=== PATIENT | female | born 1985 | race American Indian/Alaskan Native ===

== ENCOUNTER 2017-04-14 09:24 | Day surgery (SDC) | payer MEDICAID ==
[2017-04-07 14:25] VITALS: BMI 25.0
[2017-04-14] MEDS ORDERED: Lactated Ringer's 1,000 ML IV ONE ×2 (10:55→13:30)
[2017-04-14] MEDS ORDERED: Midazolam 2 MG/2 ML VIAL ONE (11:00)
[2017-04-14] MEDS ORDERED: Propofol 10 mg/ml Inj (20 ML) ONE (11:00)
[2017-04-14] MEDS ORDERED: ceFAZolin IV 2 gm in Dextrose 1 GM/50 ML BAG IVPB ONE (11:07)
--- NOTE | 2017-04-14 12:17 | PCM.SURG1 ---
Surgeon's Initial Post Op Note - Surgeon's Notes Surgeon: Dr. Hernandez Mortgage Branch Manager: Brianna Olivier PGY3, Daisy Perez PGY-2 Type of Anesthesia: General LMA Anesthesia Administered By: Dr. Murphy Pre-Operative Diagnosis: Right ankle fibula fracture Operative Findings: see dictation. M: 3.5 44 mm partially threaded synthes screw Post-Operative Diagnosis: same Operation Performed: right fibula ORIF Specimen/Specimens Removed: none Estimated Blood Loss: EBL {In ML}: 3 Blood Products Given: N/A Drains Used: No Drains Post-Op Condition: Good Date of Surgery/Procedure: 04/14/17 Time of Surgery/Procedure: 11:30
[2017-04-14] MEDS ORDERED: Oxycodone/Acetaminophen 5/325 mg Tab PO PRN ×2 (12:18)
[2017-04-14] MEDS: HYDROmorphone 0.5 mg/0.5 ml ISec IVP PRN ×2 (12:45→13:31)
[2017-04-14] MEDS ORDERED: Bupivacaine HCl 0.5% PF (10 ml) Inj ONE (12:49)
--- NOTE | 2017-04-14 12:51 | RAD ---
PROCEDURE: Right ankle dated 04/14/2017. AP and lateral views of the right ankle performed through a fiberglass cast which obscures fine soft tissue and bone detail. . HISTORY: s/p right ankle ORIF COMPARISON: No prior FINDINGS: BONES: Current study reveals a cannulated -partially threaded fixation screw traversing the lateral malleolus. Hardware appears intact without evidence of loosening or infection. Satisfactory alignment. JOINTS: Normal. No osteoarthritis. Ankle mortise maintained. Talar dome intact SOFT TISSUES: Normal. OTHER FINDINGS: None. IMPRESSION: Changes of ORIF distal right fibula. No evidence of hardware failure. Satisfactory alignment.
--- NOTE | 2017-04-14 13:15 | PCM.ANESB2 ---
Popliteal Nerve Block - Popliteal Nerve Block Date of Procedure: 04/14/17 Anesthesiologist: Silke Pre-Procedure Diagnosis: s/p right distal fibula ORIF Post-Procedure Diagnosis: same Procedure Performed: Popliteal Nerve Block Right - Procedure Popliteal Nerve Block: This procedure was explained to the patient that it is for post-operative pain management. Consent was obtained after a thorough discussion with the patient regarding the benefits and possible complications of local anesthetic block of the sciatic nerve at the popliteal level. Time-out was held with the PACU nurse to confirm the appropriate block. After applying oxygen by nasal cannula, patient's right operative leg was gently raised and supported and the groove in between the biceps femoris and vastus lateralis muscles was carefully palpated. The skin approximately 8cm above the popliteal crease was then marked. The ultrasound transducer was then applied to the posterior thigh approximately 8cm above the popliteal crease in the transverse plane and the sciatic nerve before its division was visualized lateral to the popliteal artery and in between the bicep femoris and semimembranosus/semitendinosus muscles. After identification, the lateral portion of the thigh was prepped with chloraprep solution and 3mL of Lidocaine 1% was injected subcutaneously for topical anesthesia. At this point, a # 21 gauge Stimuplex insulated 4 inch needle was inserted into pre-marked area and advanced in a perpendicular direction. The needle was inserted above the ultrasound transducer in-plane towards the sciatic nerve in a [id number] direction. Needle advancement was performed carefully under direct ultrasound visualization. Nerve stimulator was used and dorsiflexion of the right foot was elicited at a current of 0.5 MA. After repeated negative aspiration, 5cc of 0.5% Bupivacaine was injected and this was followed with 25cc of 0.5% Bupivacaine. Negative intermittent aspiration. Under ultrasound guidance the local anesthetics were observed surrounding sciatic nerve . The needle was removed intact and sterile dressing was applied. The patient tolerated the popliteal nerve block well with stable vital signs.
[2017-04-14 14:42] VITALS: BP 112/76; PULSE 80; RESP 18; TEMP 97; O2SAT 100
--- NOTE | 2017-04-14 15:03 | RAD ---
PROCEDURE: Intraoperative Fluoroscopy. HISTORY: DISPLACED RIGHT TIB/FIB FX FINDINGS: Fluoroscopic assistance was provided. 55.3 seconds fluoroscopy time utilized during this procedure. Radiation dose = 0.69 mGy next.. Please refer to the operative report for additional details.
--- NOTE | 2017-04-24 03:06 | OP ---
PROCEDURE DATE: 04/14/2017 PREOPERATIVE DIAGNOSIS: Right fibular fracture. POSTOPERATIVE DIAGNOSIS: Right fibular fracture. PROCEDURE: Right fibular open reduction and internal fixation. SURGEON: Venita Hernandez DPM PRIMARY CARE COORDINATOR: Brianna Olivier DPM, PGY-3 TYPE OF ANESTHESIA: General LMA. INDICATION: The patient is a 32-year-old female with the above mentioned diagnosis. The patient has at this time and is now requesting surgical intervention. The patient signed the consent. After careful explanation of risk, benefits, complications and alternatives for surgical procedure, no guarantees were given nor implied. A 2 mg of Ancef IV was given to the patient prior to the procedure. N.p.o. status was confirmed prior to proceeding the patient to the operating room. PREPARATION: The patient was brought to the operating room and placed on operating room table in supine position. A well-padded thigh tourniquet was placed in the patient's right thigh. After induction of sedation, the right lower extremity was prepped and draped in usual sterile manner and the procedure began. DESCRIPTION OF PROCEDURE: Right fibular open reduction and internal fixation. Attention was directed to the distal aspect of the right fibula where an approximately 2.5 cm linear longitudinal incision was created just distal to the lateral malleolus. Using C-arm guidance, the course of the fracture was mapped out using a K-wire for guidance. Once the correct position of the K-wire was acquired, the K-wire was driven from distal to proximal from the lateral malleolus stepped through the fracture site and into the shaft of the fibula. The positioning of the wire was checked under fluoroscopy and it was noted that the fracture fragment was properly reduced with the wire in place. Next, the cannulated drill from the Synthes 3.5 set was used to drill over the wire. Next, the wire was measured, mm 3.5 Synthes screw was selected. The screw was inserted over the wire and placed across the fracture site in the fibula. The strings were checked under fluoroscopy and it was noted to be in proper alignment with the threads crossing over the fracture site and no threads proximal to the fracture. The K-wire was then removed. The wound was copiously irrigated with normal sterile saline. Deep tissues were closed using 2-0 Vicryl, subcuticular closures was done using 4-0 Vicryl and the skin was closed using 4-0 nylon. The wound was dressed using Betadine dressing, 4x4s, Kerlix and bivalved below knee cast was applied. POSTOPERATIVE CONDITION: The patient tolerated the anesthesia and procedure well, was escorted to recovery room with vital signs stable and neurovascular status intact to the right foot. This patient will follow up with Dr. Hernandez next week. Brianna Olivier DPM Venita Hernandez DPM
== END 2017-04-14 15:34 | disposition home or self-care (01) ==
LOC: C.SDS 09:24
PROVIDERS: ATTEND Podiatrist Foot & Ankle Surgery
DX: S82.61XA Displaced fracture of lateral malleolus of right fibula, initial encounter for closed fracture (principal); W18.31XA Fall on same level due to stepping on an object, initial encounter; Y92.480 Sidewalk as the place of occurrence of the external cause
CPT/HCPCS: 27792; 36415; 73600; 76000; 84702; 97116; 97161; C1713; C1769; G8978; G8979; G8980; J0690; J1100; J1170; J2001; J2250; J2405; J2704; J3010; J7120

== ENCOUNTER 2017-12-08 09:14 | Day surgery (SDC) | payer MEDICAID ==
[2017-12-05 09:36] VITALS: BMI 27.7
[2017-12-08] MEDS ORDERED: Bupivacaine HCl 0.5% PF (30 ml) Inj ONE (10:44)
[2017-12-08] MEDS ORDERED: Lidocaine 2% MPF (5 ml) Inj ONE (10:44)
[2017-12-08] MEDS ORDERED: ceFAZolin 1 gm in NS 1 GM/100 ML BAG IVPB ONE (10:45)
[2017-12-08] MEDS ORDERED: Propofol 10 mg/ml Inj (20 ML) ONE ×2 (11:09→11:15)
[2017-12-08] MEDS ORDERED: Midazolam 2 MG/2 ML VIAL ONE (11:09)
[2017-12-08] MEDS ORDERED: White Petrolatum/Mineral Oil Ophth Oint(3.5 gm) ONE (11:22)
[2017-12-08] MEDS ORDERED: Oxycodone/Acetaminophen 5/325 mg Tab PO STA (12:49)
[2017-12-08] MEDS ORDERED: Oxycodone/Acetaminophen 5/325 mg Tab PO PRN (12:49)
[2017-12-08] MEDS ORDERED: HYDROmorphone 0.5 mg/0.5 ml ISec IVP PRN (12:52)
--- NOTE | 2017-12-08 12:55 | PCM.SURG1 ---
Surgeon's Initial Post Op Note - Surgeon's Notes Surgeon: Dr. Venita Hernandez, DPM Earth Moving Machine Operator: Philip Ferreira, PGY2, Karsten Buckley PGY1 Type of Anesthesia: General LMA, Local Anesthesia Administered By: Dr. Lin MD Pre-Operative Diagnosis: 1) Right fibular fracture, partial non-union. 2) Right fibular failing, prominent surgical hardware Operative Findings: See dictation Post-Operative Diagnosis: 1) Right fibular fracture, delayed union. 2) Right fibular failing, prominent surgical hardware Operation Performed: 1) Right calcaneal bone marrow aspiration with infiltration into fibular fracture, delayed union. 2) Right fibular removal of surgical hardware Specimen/Specimens Removed: none Estimated Blood Loss: EBL {In ML}: 10 Blood Products Given: N/A Drains Used: No Drains Post-Op Condition: Good Date of Surgery/Procedure: 12/08/17 Time of Surgery/Procedure: 12:40
[2017-12-08] MEDS ORDERED: Lactated Ringer's 1,000 ML IV ONE (13:26)
[2017-12-08 14:58] VITALS: BP 115/66; PULSE 86; RESP 18; TEMP 97.7; O2SAT 100
--- NOTE | 2017-12-08 16:11 | RAD ---
PROCEDURE: Intraoperative Fluoroscopy. HISTORY: REMOVAL OF RT. ANKLE HARDWARE FINDINGS: Fluoroscopic assistance was provided for right ankle hardware removal. Please refer to the operative report from [facility].
--- NOTE | 2017-12-15 07:18 | OP ---
PROCEDURE DATE: 12/08/2017 PRIMARY SURGEON: Venita Hernandez DPM ASSISTANTS: Bety Ferreira DPM, PGY-2 and Atif Buckley DPM, PGY-1. ANESTHESIA TYPE: General LMA with local. ANESTHESIOLOGIST: Shanna Allen MD PREOPERATIVE DIAGNOSES: 1. 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 2. Right fibular failing prominent surgical hardware. POSTOPERATIVE DIAGNOSES: 1. Right distal fibular fracture, delayed union. 2. Right fibular failing prominent surgical hardware. PROCEDURES PERFORMED: 1. Right calcaneal bone marrow aspiration harvest with infiltration to the delayed union site. 2. Right ankle removal of surgical hardware. INDICATIONS: The patient is a 32-year-old female with the above-stated diagnoses. The patient has exhausted all conservative treatment options provided at this point and due to continued instability she is now in need of surgical intervention. The patient signed the surgical consent after careful explanation of the risks, benefits, complications, and potential alternatives to the proposed surgical procedure. No guarantees were either given or implied. All patient's questions were answered to her satisfaction. PREPARATION: The patient's n.p.o. status was confirmed prior to bringing the patient to the operating room. The patient was brought into the operating room and placed on the operating room table in a supine position. A well-padded pneumatic tourniquet was applied at the thigh level of the right lower extremity and set at 350 mmHg to be inflated once the procedure began. Once general anesthesia was confirmed to have been achieved, an ipsilateral hip bump was placed inferior to the hip, the patient's ipsilateral surgical site. The right foot and lower leg were then prepped and draped in the usual sterile manner. Tourniquet to be inflated as needed during the procedure. At this point, the procedure began. PROCEDURE #1: Right calcaneal bone marrow aspiration harvest. At this time under fluoroscopic guidance, triangulation of the calcaneal neutral triangle was appreciated and marked on the lateral aspect of the calcaneus with a skin marker. At this time, bone marrow aspiration needle was introduced and percutaneously driven to the subcutaneous tissue layer in contact with lateral cortex of the calcaneal neutral triangle zone. At this time, a trocar was passed through the cortical calcaneal wall to be inserted into the calcaneal medullary bone. At this time, approximately 30 mL of patient's own bone marrow aspirate was harvested using bone marrow aspirate kit. The 30 mL of autologous bone marrow aspirate was then placed in centrifuge system with an anticoagulant and centrifuged to yield approximately 5 mL of bone marrow aspirate concentrate. This bone marrow aspirate concentration solution was then placed in the syringe to be used later in the procedure. Right foot removal of failed fibular hardware. Attention was then directed to the distal lateral aspect of the patient's lateral malleolus where upon palpation, prominent retrograded screw head was palpated directly to the skin layer, and approximately 2-cm linear longitudinal incision was made overlying the distal lateral aspect of the lateral malleolus, extending over the prominent surgical hardware using a #15-blade. This was then extended down through subcutaneous tissue layers with sharp dissection with care being taken to identify, avoid and retract all viable neurovascular structures. All bleeders were cauterized as needed upon encounter. At this time under fluoroscopy, surgical hardware was introduced, and radiolucent site of potential nonunion was appreciated. At this time, Synthes screw hardware was removed with care being taken to avoid potential displacement of the distal potential fracture fragments. Upon removal of the surgical hardware, distal fracture fragment was palpated and stressed and found to be stable. Under fluoroscopic guidance, radiolucent area of previous fracture was evaluated. It was found that palpable dell across the fracture site, but inner cortical wall was intact showing partially healed but delayed union fracture fragment. At this time, surgical site was then flushed with copious amounts of sterile saline. Periosteal tissue structures were then approximated using 3-0 Vicryl. Subcutaneous tissue layers were reapproximated using 4-0 Vicryl. The skin was reapproximated using 4-0 nylon. At this time, under fluoroscopic guidance, bone marrow was aspirated through the trocar needle for a total of 30 cc for implantation. Prior to closure using 0.045-inch K-wire, bone healing across the fracture site was performed to produce acute bony repair to process across the fracture site. At this time, percutaneous bone marrow aspirate concentration needle was driven up previous screw medullary shaft deficit percutaneously. Bone marrow aspirate concentration contents were delivered up medullary shaft and across being in the fracture site. Surgical sites were then dressed with Betadine-soaked sterile 4x4 gauze, Kerlix, Coban, and Carson. The patient was placed in AO type posterior splint and to be nonweightbearing postoperatively. Note that tourniquet was not applied for the duration of this procedure. POSTOPERATIVE CONDITION: The patient tolerated the anesthesia and procedure well and was escorted to the recovery room with vital signs stable and neurovascular status intact. The patient had no complaints or complications. Of note the patient received a total of 20 mL over 1:1 mixture of 0.5% Marcaine plain to 1% lidocaine plain preoperatively. The patient received a total of 5 mL of 1:1 mixture of 0.5% Marcaine plain to 1% lidocaine plain intraosseously into calcaneus through bone aspiration harvest site prior to closure. The patient received additional 15 mL of 1:1 mixture of 0.5% Marcaine plain to 1% lidocaine plain in a local block-type fashion along the ankle joint postoperatively. Bety Ferreira DPM Venita Hernandez DPM [id number]
== END 2017-12-08 15:08 | disposition home or self-care (01) ==
LOC: C.SDS 09:14
PROVIDERS: ATTEND Podiatrist Foot & Ankle Surgery
DX: S82.61XK Displaced fracture of lateral malleolus of right fibula, subsequent encounter for closed fracture with nonunion (principal); S82.64XK Nondisplaced fracture of lateral malleolus of right fibula, subsequent encounter for closed fracture with nonunion; J45.909 Unspecified asthma, uncomplicated; Z91.013 Allergy to seafood; T84.9XXA Unspecified complication of internal orthopedic prosthetic device, implant and graft, initial encounter
CPT/HCPCS: 20680; 20999; 97116; 97161; G8978; G8979; G8980; J0690; J1100; J2250; J2405; J2704; J3010; J7120